=== PATIENT | female | born 1955 | race Caucasian/White ===

== ENCOUNTER → 2017-05-04 | Outpatient (CLI) | payer OTHER, MEDICARE | LOC: RAD 17:04 | DX: M54.5 Low back pain (principal) | CPT/HCPCS: 71020 ==

== ENCOUNTER → 2020-09-21 | Outpatient (CLI) | payer BC, MEDICARE | LOC: RAD 08:42 | DX: R05 Cough (principal) | CPT/HCPCS: 71046 ==

== ENCOUNTER → 2021-04-24 | Outpatient (CLI) | payer BC, MEDICARE | LOC: KOH-I 09:36 | DX: M25.522 Pain in left elbow (principal) | CPT/HCPCS: 73070 ==

== ENCOUNTER → 2021-07-04 | Outpatient (CLI) | payer BC, MEDICARE | LOC: MAMO 09:54 | DX: Z12.31 Encounter for screening mammogram for malignant neoplasm of breast (principal) | CPT/HCPCS: 77063; 77067 ==

== ENCOUNTER → 2021-10-02 | Outpatient (CLI) | payer BC, MEDICARE | LOC: KOH-I 10:54 | DX: R05.9 Cough, unspecified (principal) | CPT/HCPCS: 71046 ==

== ENCOUNTER → 2022-01-09 | Outpatient (CLI) | payer BC, MEDICARE | LOC: CT 09:57 | DX: R10.32 Left lower quadrant pain (principal); I25.10 Atherosclerotic heart disease of native coronary artery without angina pectoris; I10 Essential (primary) hypertension | CPT/HCPCS: 36415; 82565; 84520; Q9967 ==

== ENCOUNTER → 2022-02-03 | Outpatient (CLI) | payer BC, MEDICARE | LOC: KOH-I 12:23 | DX: E87.1 Hypo-osmolality and hyponatremia (principal) | CPT/HCPCS: 71046 ==

== ENCOUNTER → 2022-02-21 | Outpatient (CLI) | payer BC, MEDICARE | LOC: US 08:00 | DX: K75.81 Nonalcoholic steatohepatitis (NASH) (principal) | CPT/HCPCS: 76705 ==

== ENCOUNTER → 2022-04-25 | Outpatient (CLI) | payer BC, MEDICARE | LOC: MAMO 04-18 11:30 | DX: N63.0 Unspecified lump in unspecified breast (principal) | CPT/HCPCS: 77065; G0279 ==